=== PATIENT | female | born 1945 | race Caucasian/White ===

== ENCOUNTER 2017-03-27 10:32 | Emergency (ER) | payer OTHER ==
[~2017-03-27] VITALS: Ht 154.9 cm; Wt 72.0 kg
[2017-03-27] MEDS ORDERED: RAMIPRIL2.5 MG PO (10:44)
[2017-03-27] MEDS ORDERED: CHLORTHALID50 MG PO (10:45)
[2017-03-27 11:25] VITALS: BP 135/77
== END 2017-03-27 11:25 | disposition home or self-care (01) | DRG 125 ==
LOC: ED 10:32
DX: S05.01XA Injury of conjunctiva and corneal abrasion without foreign body, right eye, initial encounter (principal); X83.8XXA Intentional self-harm by other specified means, initial encounter; Y93.H2 Activity, gardening and landscaping; Y92.007 Garden or yard of unspecified non-institutional (private) residence as the place of occurrence of the external cause